=== PATIENT | female | born 2000 | race Hispanic/Latino ===

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

== ENCOUNTER 2022-06-30 21:42 | Emergency (ER) | payer MEDICAID ==
[~2022-06-30] VITALS: Ht 152.4 cm; Wt 77.1 kg
[2022-06-30] MEDS ORDERED: BACI30OI6 TP (22:11)
[2022-06-30] MEDS ORDERED: IBUP-2070 PO (22:11)
[2022-06-30] MEDS: BACITRACIN 1 EACH PACKET TP ONE (22:18)
[2022-06-30] MEDS: BACITRACIN 28.4 GM OINT TP ONE (22:20)
[2022-06-30] MEDS: IBUPROFEN 600 MG TABLET PO ONE (22:20)
[2022-06-30 22:21] VITALS: BP 124/68
== END 2022-06-30 22:25 | disposition home or self-care (01) ==
LOC: EDH 21:42
DX: S80.212A Abrasion, left knee, initial encounter (principal); W01.0XXA Fall on same level from slipping, tripping and stumbling without subsequent striking against object, initial encounter; Y93.89 Activity, other specified; Y92.89 Other specified places as the place of occurrence of the external cause; Y99.8 Other external cause status

== ENCOUNTER 2024-02-25 02:21 | Emergency (ER) | payer MEDICAID, OTHER ==
[~2024-02-25] VITALS: Ht 152.4 cm; Wt 71.7 kg
[~2024-02-25 02:21] MED LIST: BACI30OI6 TP; IBUP-2070 PO
[2024-02-25 02:23] VITALS: BP 128/89; PULSE 85; RESP 20
[2024-02-25 02:59] LABS: APPEARANCE,URINE CLEAR (CLEAR); BILIRUBIN,URINE NEGATIVE (NEGATIVE); COLOR,URINE LIGHT-YELLOW (YELLOW); GLUCOSE, URINE (UA) NEGATIVE (NEGATIVE); KETONES,URINE NEGATIVE (NEGATIVE); LEUKOCYTE ESTERASE ,URINE 25 Leu/uL (NEGATIVE); NITRATE,URINE NEGATIVE (NEGATIVE); OCCULT BLOOD,URINE NEGATIVE (NEGATIVE); PH,URINE 5.5 (5.0-8.0); PROTEIN,URINE 10 mg/dL (NEGATIVE); UROBILINOGEN,URINE 0.2 mg/dL (0.2-1.0)
[2024-02-25 03:01] LABS: ADD UA MICROSCOPIC YES
[2024-02-25 03:02] LABS: MUCUS,URINE RARE LPF (None Seen); SQUAMOUS EPITHELIAL CELL,UR RARE /HPF (0-2)
[2024-02-25] MEDS: PHENAZOPYRIDINE HCL 200 MG TABLET PO ONE (03:21)
[2024-02-25] MEDS: CEPHALEXIN 500 MG CAPSULE PO ONE (03:21)
[2024-02-25] MEDS ORDERED: PHEN-847 PO (04:00)
[2024-02-25] MEDS ORDERED: CEPH500T PO (04:00)
[2024-02-25] MEDS ORDERED: METO-296 PO (04:00)
== END 2024-02-25 04:05 | disposition home or self-care (01) ==
LOC: EDH 02:21
DX: N39.0 Urinary tract infection, site not specified (principal); Z79.899 Other long term (current) drug therapy
CPT/HCPCS: 81001; 87088

== ENCOUNTER 2024-04-21 16:46 | Emergency (ER) | payer OTHER ==
[~2024-04-21] VITALS: Ht 152.4 cm; Wt 73.5 kg
[~2024-04-21 16:46] MED LIST changes: +CEPH500T PO; +METO-296 PO; +PHEN-847 PO
[2024-04-21 18:00] LABS: APPEARANCE,URINE CLEAR (CLEAR); BILIRUBIN,URINE NEGATIVE (NEGATIVE); COLOR,URINE YELLOW (YELLOW); GLUCOSE, URINE (UA) NEGATIVE (NEGATIVE); KETONES,URINE 40 mg/dL (NEGATIVE); LEUKOCYTE ESTERASE ,URINE NEGATIVE Leu/uL (NEGATIVE); NITRATE,URINE NEGATIVE (NEGATIVE); OCCULT BLOOD,URINE LARGE (NEGATIVE); PROTEIN,URINE 30 mg/dL (NEGATIVE)
[2024-04-21 18:01] LABS: ADD UA MICROSCOPIC YES
[2024-04-21 18:02] LABS: HCG,QUALITATIVE URINE NEGATIVE (NEGATIVE)
[2024-04-21 18:03] VITALS: BP 128/80; PULSE 75; RESP 18; O2SAT 100
[2024-04-21 18:04] LABS: BACTERIA,URINE RARE /HPF (None Seen); MUCUS,URINE MOD LPF (None Seen); RBC,URINE 51-100 /HPF (0-1); SQUAMOUS EPITHELIAL CELL,UR FEW /HPF (0-2)
== END 2024-04-21 19:26 | disposition home or self-care (01) ==
LOC: EDH 16:46
DX: N92.0 Excessive and frequent menstruation with regular cycle (principal); Z79.899 Other long term (current) drug therapy; Z98.890 Other specified postprocedural states
CPT/HCPCS: 81001; 81025